=== PATIENT | female | born 1990 | race Caucasian/White ===

== ENCOUNTER 2024-09-14 10:54 | Emergency (ER) | payer OTHER, SELFPAY ==
--- NOTE | 2024-09-14 10:56 | ED_ITS ---
HPI - Back Pain/Injury General Chief Complaint: Back Pain/Injury Stated Complaint: Back pain Time Seen by Provider: 09/14/24 10:56 Source: patient Mode of arrival: ambulatory Limitations: no limitations History of Present Illness HPI Narrative: Patient is a 33-year-old female who presents with back pain for 4 days. Patient states she was caring a lot of heavy boxes and thinks she pulled a muscle. Patient also reports sharp shooting spasms. Denies any numbness, tingling or weakness to legs. Denies any loss of bowel or bladder. has taken ibuprofen with no relief. Has also used massage gun. Related Data Home Medications Medication Instructions Recorded Confirmed Last Taken Type citalopram 20 mg tablet mg 09/14/24 Unknown History levothyroxine 50 mcg tablet mcg 09/14/24 Unknown History tamoxifen 20 mg tablet mg 09/14/24 Unknown History Allergies Allergy/AdvReac Type Severity Reaction Status Date / Time No Known Allergies Allergy Verified 09/14/24 11:10 Review of Systems Review of Systems: All systems reviewed & are unremarkable except as noted in HPI and below Constitutional: Constitutional: Denies body ache(s), Denies chills, Denies fatigue, Denies fever(s), Denies headache(s), Denies malaise and Denies weakness Eyes: Eyes: Denies blurry vision, Denies irritation and Denies loss of vision ENT: Denies otalgia, Denies headache(s), Denies nasal discharge, Denies sinus pain and Denies sore throat Cardiovascular: Cardiovascular: Denies chest pain, Denies irregular heart rhythm and Denies dyspnea Respiratory: Respiratory: Denies dyspnea Gastrointestinal: Gastrointestinal: Denies abdominal pain, Denies melena, Denies hematochezia, Denies diarrhea, Denies nausea and Denies vomiting Musculoskeletal: Musculoskeletal: Reports back pain, Denies myalgias and Denies arthralgias Integumentary/Breasts: Skin/Breast: Denies pruritus and Denies rash Neurologic: Denies headache(s), Denies loss of vision and Denies weakness Psychiatric: Psychiatric: Reports no additional psychiatric complaints Endocrine: Endocrine: Denies fatigue PMFSH Comments At time of signature, agree with nursing past medical, surgical, social and family history. There is no relevant family history pertinent to the presenting complaint. Exam Const: General: cooperative, healthy appearing, comfortable, no acute distress and well nourished Nutritional Appearance: well nourished Orientation/consciousness: patient oriented x3 Limitations: no limitations HENMT: Head: normal to inspection, normocephalic and atraumatic Ears: hearing grossly normal bilaterally and external ears normal Face/Nose/Sinus: Normal external nose present, normal facial exam and face symmetric Face and sinus: normal facial exam and face symmetric Mouth: Yes lip normal Eyes: General: appearance normal, both eyes and all related structures Alignment and Position: alignment normal and position normal Periorbital: periorbital findings normal Eyelids: eyelids normal Pupils: Equal, round and reactive pupils present EOM: EOMs intact bilaterally Neck: Neck: normal visual inspection, full ROM and supple Chest: Chest palpation & inspection: normal inspection of the chest Resp: Effort & Inspection: normal respiratory effort and able to speak in complete sentences Auscultation: clear to auscultation bilaterally Cardio: Rate: regular rate Rhythm: regular rhythm Heart sounds: S1 normal heart sound present and S2 normal heart sound present GI: Inspection: normal to inspection Back/Spine/Pelvis: Back: no CVA tenderness Thoracic/Lumbar Spine: pain with thoraco-lumbar ROM, paraspinal muscle tenderness bilaterally in the upper lumbar and in the mid lumbar, No thoracic spinal tenderness, No lumbar spinal tenderness and other (mild bruising noted to paraspinal area noted from massage gun use) Skin: General skin exam: normal color and no rashes or lesions noted Neuro: General: patient oriented x3 and moves all extremities Cranial nerves: Yes Equal, round and reactive pupils present Speech: normal speech Gait exam (Neuro): Normal gait present Extrem: General: normal to inspection, full ROM and no edema Psych: Appearance: grossly normal and well kempt Mental Status: mental status grossly normal Speech and movement: Normal speech and movement present Affect: normal affect Attitude: cooperative Thought process: Normal thought process present Course Course Emergency Course: Patient is aware of diagnosis, understands and agrees to treatment plan. Anticipatory guidance given. Patient agrees to follow-up as directed and is aware of reasons to seek care at the emergency department. Portions of this record may have been created with voice recognition software Level of Care: Express Care Visit Vital Signs Vital signs: Reviewed MDM - Back Pain/Injury MDM Narrative Medical decision making narrative: Patient appears uncomfortable but is stable. Given IM Toradol. Patient reassessed after 20 minutes. Patient reports no relief. Discussed taking mus ashley relaxer when she gets home. Educated patient on the next step of the emergency department if back pain persists or there is no improvement with medications given. Pt well hydrated appearing, in no respiratory distress, hemodynamically stable. Recommend supportive care. The patient is stable at time of discharge the clinical impression was discussed and the patient was given the opportunity to ask questions, which were addressed as completely as possible given the information available at present. Anticipatory guidance and return to care precautions were discussed and the importance of primary care follow-up was stressed and encouraged. The patient voiced understanding of the plan, indications to return, and the need for follow-up. Exam findings show no acute concerns or changes Patient is appropriate for outpatient treatment and follow-up. Differential Diagnosis Differential diagnosis: Likely lumbar radiculopathy, sciatica and strain of lumbar region Medical Records Attestation: I reviewed the patient's medical records. Discharge Plan Discharge Clinical Impression: Strain of lumbar region Qualifiers: Encounter type: initial encounter Qualified Code(s): S39.012A - Strain of muscle, fascia and tendon of lower back, initial encounter Patient Disposition: Home Condition: Stable Instructions: Low Back Strain (ED), Lower Back Exercises (ED) Additional Instructions: Take steroids in the morning with food for the next 5 days, take muscle relaxers every 8 hours as needed for muscle spasm. do not drive or make any important decisions while on this medication for it can make you drowsy Exercise:Combine aerobic exercise, like walking or swimming, with specific exercises to keep the muscles in your back and abdomen strong and flexible.bed rest is not recommended. Proper Lifting:Be sure to lift heavy items with your legs, not your back. Do not bend over to pick something up. Keep your back straight and bend at your knees. Weight:Maintain a healthy weight. Being overweight puts added stress on your lower back. Avoid Smoking:Both the smoke and the nicotine cause your spine to age faster than normal. Proper Posture:Good posture is important for avoiding future problems. A therapist can teach you how to safely stand, sit, and lift. Use warm moist heat or ice to help with pain. Follow up with Primary provider in 2-3 days, This may become a chronic condition and they will be the one to help manage your pain and order additional testing. Follow-up with your doctor for further care and evaluation or seek ER if you develop problems with bladder/bowel function, weakness or loss of feeling in one or both of your legs. Your blood pressure was elevated above 120/80 today at Urgent Care. This puts you above the threshold for follow up visit with a primary care provider. High blood pressure does not usually cause any symptoms, however it may lead to kidney failure, stroke, heart disease just to name a few if untreated . Many people are anxious when seeing a provider or nurse. As a result, you are not diagnosed with hypertension at this time unless your blood pressure is persis tently high at two office visits at least one week apart. Some things that can help lower blood pressure are lifestyle modifications, such as light exercise, decreased salt in diet, and weight loss. It is important to follow up with a PCP about this within 1 week. If you are having a hard time finding a physician please call our [facility] liaison at [phone]. Patient Language: Divehi Prescriptions: New prednisone 20 mg tablet 40 mg PO DAILY 5 Days Qty: 10 0RF baclofen 10 mg tablet 10 mg PO TID 5 Days Qty: 15 0RF lidocaine 5 % adhesive patch,medicated 1 patch topical DAILY Qty: 15 0RF Rx Instructions: leave on most painful area for up to 12 hrs No Action citalopram 20 mg tablet levothyroxine 50 mcg tablet tamoxifen 20 mg tablet Follow-up/Referrals: José Miguel Rubin MD [Physician] - 3 Days (Establish care) Stand Alone Forms: Work/School Release IP
[2024-09-14 11:09] VITALS: BP 141/90; PULSE 95; RESP 18; TEMP 36.7; O2SAT 100
[2024-09-14] MEDS: KETOROLAC 30 MG/ML VIAL (*BKC) IM (11:20)
--- OUTSIDE RECORDS SUMMARY | 2024-09-14 11:30 | XMS_ITS | Clinical Summary ---
Author Organization [facility] Address [facility] [place] [address] Care Team Providers Care Marine Steamfitter Name Role Phone Guerita Sorensen MD Unavailable Laurent Quigley MD Unavailable [phone] Lydia Harman MD Primary Care Provider Source Comments [facility],non-owned Affiliates and Associated Physician Practices is amultiple site organization consisting of ambulatory clinics and hospital sitesin [place], [place], [place] and [place]. This disclosure is being madepursuant to the Care Everywhere program and may not contain all information available regarding this patient. Last updated 18.[facility] Allergies No known active allergies Medications * Be aware that medications may not be up to date on this document. Alwaysverify current medications with the patient. 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 High risk screening recommendations: Decided to start annual screening mammography age 35 and to add breast MRI age 40 if lifetime risk still 20 % or greater at age 40 1) yearly mammograms, and 2) yearly breast MRI with contrast. Consider risk reducing tamoxifen (pre- or postmenopausal) or raloxifene (Evista) (postmenopausal) for 5 years. Has Mirena IUD. Tamoxifen, 20 mg, started 01/12/2021. Tolerating without problem 07/14/2021. Her personal risk for having a BRCA mutation is less than 2 %. Maternal grandmother with breast cancer is . Patient considering genetic testing in herself but did need to address life insurance. Also has [employer], so would want to meet with genetics counselor. Resolved Problems Problem Noted Date Diagnosed Date Resolved Date Lump in upper outer quadrant of right breast 4 03/19/2024 Overview (03/19/2024): Right upper outer, noted by gynecology nurse practitioner 03/10/2024. 03/19/2024 Jason. I could not appreciate mass and patient could not appreciate mass. Bilateral diagnostic mammogram, right ultrasound: Normal, BI-RADS 1. Family history of breast cancer 01/18/2021 09/04/2021 Overview (09/04/2021): Lifetime risk for developing breast cancer is predicted to be: calculated 01/12/2021 n/a % with the Madelin model, (0 biopsies) (not valid in women under age 35) 23 % with the Tyrer-Cuzick model, (version 8, unknown density) 9 % with the Mahin model, and 13 % with the BRCAPRO model. High risk screening recommendations: Due to start screening either at age 35, or age 40. Plan repeat assessment age 35. 1) yearly mammograms, and 2) yearly breast MRI with contrast. Consider risk reducing tamoxifen (pre- or postmenopausal) or raloxifene (Evista) (postmenopausal) for 5 years. Has Mirena IUD. Tamoxifen, 20 mg, started 01/12/2021. Her personal risk for having a BRCA mutation is less than 2 %. Maternal grandmother with breast cancer is . Patient considering genetic testing in herself but did need to address life insurance. Also has [employer], so would want to meet with genetics counselor. Screening for condition 06/30/202012/2021 Overview (06/30/2020): Adult Abstraction Problem List Screening Dexa Scan (Bone Density): Result: Pap Smear: 09/24/2019 negative 09/25/2017 negative Mammogram: Result: CF Test: Result: Encounter for screening 06/30/202012/2021 Overview (09/04/2021): Adult Abstraction Problem List Screening Dexa Scan (Bone Density): Result: Pap Smear: 09/24/2019 negative 09/25/2017 negative Mammogram: Result: CF Test: Result: Gestational hypertension 05/24/2020 38 weeks gestation of 05/24/2020 10/31/2020 Positive GBS test 05/13/2020 05/25/2020 Supervision of other normal , antepartum 10/12/2019 05/25/2020 Hypothyroidism affecting 10/06/2019 11/24/2020 Migraine headache 07/30/2016 11/24/2020 Fibroadenoma of breast 07/30/201609/04 Overview (09/04/2021): Overview: 2015 2016 Migraine headache 07/30/2016 03/11/2024 Immunizations Immunization Administration Dates Next Due Jesu Yin primary monoval ent 12+ yr 0.3mL Purple cap 08/02/2020,07/07/2020 DT (AGE 0-7) 11/15/2003 DTaP VACCINE IM (6wk-6yrs) 08/28/1994,,04/01/1990,1989,1989 FLU VACCINE QUAD IIV4 SPLIT 0.25 ML IM 02/09/2019 FLU VACCINE TRI IIV3 SPLIT I M (FLUVIRIN) 02/12/2021 HEP B VACCINE, PED/ADOL 02/01/1993,08/26/1992, HIB-PRP-OMP 3 DOSE 09/18/1990,07/10/1990, 990 INFLUENZA VACCINE 01/19/2024 INFLUENZA VACCINE, QUADR. (F LUZONE; FLULAVAL; FLUARIX; AFLURIA QUADRIVALENT; 6MO+), 0.5 ML (IIV4) 02/24/2023,02/18/2022,02/02/2020,2018 MMR 08/28/1994,12/22/1990 POLIO IPV 08/28/1994, 1,01/21/1990,1989 TDAP (7yrs+) 03/28/2020,05/02/2015 VARICELLA 02/12/2021,07/07/2001 Family History Medical History Relation Name Comments Hypertension Father Cancer - Skin, Non Melanoma Maternal Grandfather basal cell, living age 84 Cancer - Breast Maternal Grandmother age 59 Diabetes - Type 2 Mother Hypertension Mother Leukemia Paternal Grandfather ag e 73 Relation Name Status Comments Brother Baiorn Alive Father Alive Maternal Grandfather Alive Maternal Grandmother Mother Alive Paternal Grandfather Paternal Grandmother Alive Sister Elena Social History Tobacco Use Types Packs/Day Years Used Date Smoking Tobacco: Never Smokeless Tobacco: Never Tobacco Cessation:Counseling Given: Not Answered Alcohol Use Standard Drinks/Week Comments Yes 2 (1 standard drink = 0.6 oz pur e alcohol) 2 x week AUDIT-C Answer Date Recorded Q1: How often do you have a drink containing alc ohol? 2-4 times a month 09/05/2021 Q2: How many drinks containi ng alcohol do you have on a typical day when you are drinking? 1 or 2 09/05/2021 Q3: How often do you have si x or more drinks on one occasion? 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 Not on file Not on file Not on emily e Last Filed Vital Signs Vital Sign Reading Time Taken Comments Blood Pressure 129/83 03/11/2024 8:15 AM MACHINE [employer] HELPER Pulse 98 03/11/2024 8:15 AM MACHINE [employer] HELPER Temperature 36.7 C (98.1 F) 03/11/2024 8:15 AM MACHINE [employer] HELPER Respiratory Rate 18 08/17/2022 2:35 PM CDT Oxygen Saturation 99% 03/11/2024 8:15 AM MACHINE [employer] HELPER Inhaled Oxygen Concentration - - Weight 83.9 kg (185 lb) 03/19/2024 8:53 AM MACHINE [employer] HELPER Height 167.6 cm (5' 6 ) 03/19/2024 8:27 AM MACHINE [employer] HELPER Body Mass Index 29.86 03/19/2024 8:27 AM MACHINE [employer] HELPER Plan of Treatment Upcoming Encounters Date Type Department Care Team (Late st Contact Info) Description 04/16/2025 9:00 AM MACHINE [employer] HELPER Office Visit [facility] Health Breast Care - Surgery [address] [place] [id number] Sis Gomez MD [address] [place] [phone] Health Maintenance Due Date Last Done Comments DEPRESSION SCREENING 04/29/2024 08/01/2023, 08/17/2022, 09/04/2021 COVID-19 VACCINE ( season) 2025 08/02/2020, 07/07/2020 Postponed from 12/29/2023 (Patient Directed) PAP with HPV 11/03/2026 11/03/2021, 09/24/2019 DTAP/TDAP/TD VACCINES (9 - Td or Tdap) 03/28/2030 03/28/2020, 05/02/2015, 11/15/2003, Additional history exists ZOSTER VACCINE (1 of 2) 09/18/2039 HIB VACCINE Completed 09/18/1990, 06/27, 04/01/1990 HEPATITIS B VACCINE Completed 02/01/1993, 08/26/1992, 07/27/1992 HEPATITIS C SCREENING Completed 10/12/2019 HIV SCREENING Completed 03/11/2020, 10/12/2019 INFLUENZA VACCINE Completed 01/19/2024, , 02/18/2022, Additional history exists HPV VACCINE Aged Out No longer eligi ble based on patient's age to complete this topic MENINGOCOCCAL (Group B) VACCINE SHARED DECISION-MAKING Aged Out No longer eligible based on patient's age to complete this topic MENINGOCOCCAL GROUPS A/C/Y/W VACCINE Aged Out No longer eligible based on patient's age to complete this topic PNEUMOCOCCAL VACCINE Aged Out No long er eligible based on patient's age to complete this topic Procedures Procedure Name Priority Date/Time Associated Diagnosis Comments PAP IG LB+HPV APTIMA Routine 11/03/2021 1:59 PM CDT Well woman exam HIV-1 HIV-2 ANTIBODY + HIV P24 AG PANEL Routine 03/11/2020 12:08 PM MACHINE [employer] HELPER Encounter for supervision of normal first in second trimester 26 weeks gestation of HEPATITIS C ANTIBODY Routine 10/12/2019 3:34 PM CDT with uncertain viability, single or unspecified fetus from Last 3 Months or Most Recently Relevant to Health Maintenance Results * PAP IG LB+HPV APTIMA (11/03/2021 1:59 PM CDT) Diagnosis [facility] INSURANCE BILL Comment:NEGATIVE FOR INTRAEP ITHELIAL LESION OR MALIGNANCY. Specimen Adequacy [facility] INSURANCE BILL Comment: Satisfactory for evaluation. Endocervical and/or squamous metaplastic cells (endocervical component) are present. Clinician Provided ICD10 [facility] INSURANCE BILL Comment: Z01.419 N83.209 Performed by [facility] INSURANCE BILL Comment:Dat Alexandre totswapnilologist (ASCP) Comment . [facility] INSURANCE BILL Note [facility] INSURANCE BILL Comment: The Pap smear is a screening test designed to aid in the detection of premalignant and malignant conditions of the uterine cervix. It is not a diagnostic procedure and should not be used as the sole means of detecting cervical cancer. Both false-positive and false-negative reports do occur. . [facility] CPT Code Automation [facility] INSURANCE BILL Comment: This liquid based ThinPrep(R) pap test was screened with the use of an image guided system. Human papillomavirus Aptima Negative Negative [facility] INSURANCE BILL Comment: This nucleic acid amplification test detects fourteen high-risk HPV types (16,18,31,33,35,39,45,51,52,56,58,59,66,68) without differentiation. Pathology/Cytolog y ENTIRE ENDOCERVIX / Unknown 11/03/2021 1:59 PM CDT 11/07/2021 Narrative [facility] INSURANCE BILL - 11/08/2021 3:08 PM CDT No. of containers..01 ThinPrep Vial Resulting Agency Comment Lab Testing performed at: [id number] [id number] Guerita Sorensen MD LAB - PATHOLOGY/CYTOLOGY OR DERABLES Final Result [facility] INSURANCE BILL [address] [place] [address] * HIV-1 HIV-2 ANTIBODY + HIV P24 AG PANEL (03/11/2020 12:08 PM MACHINE [employer] HELPER) HIV Screen 4th Generation w Reflex Non Reactive Non Reactive [facility] INSURANCE BILL Blood BLOOD SPECIMEN / Unknown 03/11/2020 12:08 PM MACHINE [employer] HELPER 03/11/2020 Narrative Resulting Agency Comment Lab Testing performed at: [facility] [address] [facility] [id number] Guerita Sorensen MD LAB - CHEMISTRY ORDERABLES Final Result [facility] INSURANCE BILL [address] [place] [address] * HEPATITIS C ANTIBODY (10/12/2019 3:34 PM CDT) Hepatitis C Antibody <0.1 0.0 - 0.9 s/co ratio [facility] INSURANCE BILL Comment: Negative: < 0.8 Indeterminate: 0.8 - 0.9 Positive: > 0.9 . The CDC recommends that a positive HCV antibody result be followed up with a HCV Nucleic Acid Amplification test (158790). Blood BLOOD SPECIMEN / Unknown 10/12/2019 3:34 PM CDT 10/12/2019 Narrative Resulting Agency Comment Lab Testing performed at: [address] [id number] Guerita Sorensen MD LAB - CHEMISTRY ORDERABLES Final Result Performing Organization Address City/[facility]/ZIP Co de Phone Number [facility] INSURANCE BILL [address] [place] [phone] from Last 3 Months or Most Recently Relevant to Health Maintenance Insurance [employer] Advance Directives * Full Code (Latest Code Status on File) Date Activated Date Inactivated Comments 05/24/2020 12:02 PM 05/27/2020 3:57 PM Care Teams Marine Steamfitter Relationship Specialty Start Date End Date Lydia Harman MD [address] [place] [address] PCP - General Internal Medicine 03/11/24 Guerita Sorensen MD [address] [place] [phone] [employer] Goods Fabricator Obstetrics and Gynecology 10/12/20 Laurent Quigley MD [address] [place] [address] [address] [place] [address] Distribution Technician Cardiology 10/12/20
--- OUTSIDE RECORDS SUMMARY | 2024-09-14 11:30 | XMS_ITS | Encounter Summary ---
Author Organization [facility] Address [facility] [place] [address] Care Team Providers Care Director Of Culture Name Role Phone Jeannine Guevara DO Primary Care Provider [phone] Jeannine Guevara DO Unavailable [phone] Guerita Sorensen MD Unavailable [phone] Laurent Quigley MD Unavailable [phone] Melissa Patterson DO Unavailable [phone] Jeannine Guevara DO Unavailable [phone] Jeannine Guevara DO Unavailable [phone] Lydia Harman MD Primary Care Provider Jeannine Guevara DO Primary Care Provider [phone] Lydia Harman MD Primary Care Provider Reason for Visit * Reason Onset Date Comments MEDICATION REFILL 10/03/2020 Encounter Details Date Type Department Care Team (Late st Contact Info) Description 10/03/2020 Refill [facility] - [employer] APPLIC[employer] [address] [address] Guerita Sorensen MD [facility] [place] [phone] MEDICATION REFILL Social History Tobacco Use Types Packs/Day Years Used Date Smoking Tobacco: Never Smokeless Tobacco: Never Alcohol Use Standard Drinks/Week Comments Not Currently 3 (1 standard drink = 0.6 oz pur e alcohol) Socially Comments No Sex and Gender Information Value Date Recorded Sex Assigned at Female 04/15/2020 9:06 AM GATE TECHNICIAN Legal Sex Female 8:10 AM CDT Gender Identity Female 08/14/2018 3:26 PM CDT Sexual Orientation Straight 05/13/2020 1: 44 PM GATE TECHNICIAN documented as of this encounter Functional Status * Is person deaf or have serious hearing difficulty? Answer Date of Assessment Author No 05/24/2020 1:34 PM GATE TECHNICIAN Kaitlin Gillespie RN * Is person blind or have serious difficulty seeing? Answer Date of Assessment Author No 05/24/2020 1:34 PM Kaitlin Chappell RN * Does person have serious difficulty walking/climbing stairs? Answer Date of Assessment Author No 05/24/2020 1:34 PM Kaitlin hCappell RN * Does person have difficulty dressing/bathing? Answer Date of Assessment Author No 05/24/2020 1:34 PM Kaitlin Chappell RN * Does person have difficulty doing errands alone? Answer Date of Assessment Author No 05/24/2020 1:34 PM Kaitlin Chappell RN documented as of this encounter Mental Status * Does person have difficulty concentrating/remembering/making decisions? Answer Entry Date Author No 05/24/2020 1:34 PM Kaitlin Chappell RN documented in this encounter Miscellaneous Notes * Telephone Encounter - Guerita Sorensen MD - 10/04/2020 9:55 AM CDT Signed. * Telephone Encounter - Deirdre Bocanegra RN - 10/04/2020 8:33 AM CDT MARILYN: 08/03/20 LRF: 07/01/20 Requested Prescriptions Pending Prescriptions Disp Refills â€¢ levothyroxine (SYNTHROID) 50 MCG tablet 90 tablet 0 Sig: Take 1 (one) tablet by mouth once daily documented in this encounter Plan of Treatment Upcoming Encounters Date Type Department Care Team (Late st Contact Info) Description 04/16/2025 9:00 AM GATE TECHNICIAN Office Visit [facility] - Surgery [address] [place] [phone] Sis Gomez MD [address] [place] [phone] documented as of this encounter Visit Diagnoses Not on filedocumented in this encounter Additional Health Concerns Infection Onset Date Last Indicated Resolved Time COVID-19 Under Investigation 12/27/2020 12/27/2020 12/27/2020 11:13 AM CDT documented as of this encounter Care Teams Director Of Culture Relationship Specialty Start Date End Date Jeannine Guevara DO [address] [facility] [place] [phone] PCP - General Family Medicine 08/29/17 11/27/23 Jeannine Guevara DO [address] [facility] [place] [phone] PCP - Attributed-[employer] 06/27/20 2 Melissa Patterson DO [address] [place] [address] [place] [phone] PCP - Attributed-[employer] 07/28/21 Jeannine Guevara DO [address] [facility] [place] [phone] PCP - Attributed-[employer] 08/27/22 01/14/23 Jeannine Guevara DO [address] [facility] [place] [phone] PCP - Attributed-[employer] 11/27/22 Lydia Harman MD [address] [place] [address] PCP - General Internal Medicine 11/28/23 12/16/23 Jeannine Guevara DO [address] [facility] [place] [phone] PCP - General Family Medicine 12/17/23 03/10/24 Lydia Harman MD [address] [place] [address] PCP - General Internal Medicine 03/11/24 Guerita Sorensen MD [address] [place] [phone] [facility] 10/12/20 Laurent Quigley MD [address] [place] [address] [address] [place] [address] Cosmetic Consultant Cardiology 10/12/20 documented as of this encounter
--- OUTSIDE RECORDS SUMMARY | 2024-09-14 11:30 | XMS_ITS | Encounter Summary ---
Author Organization [facility] [place] [address] [place] [address] Care Team Providers Care Production Underwriter Name Role Phone Unavailable Primary Care Provider Unavailabl e Prior Encounters Date Type Department Care Team Description 08/01/2022 Travel 08/01/2022 8:00 AM CDT Office Visit Dentists [address] [place] [address] Masood Milena, [facility] 08/01/2022 8:00 AM CDT Office Visit Dentists [address] [place] [address] Nick De Los Santos, DMD 01/27/2022 Travel 01/27/2022 8:00 AM CDT Office Visit Dentists [address] [place] [address] Nick De Los Santos, DMD 07/25/2021 Travel 07/25/2021 4:30 PM CDT Office Visit Dentists [address] [place] [address] Nick De Los Santos, DMD 07/14/2021 Travel 07/14/2021 8:00 AM CDT Office Visit Dentists [address] [place] [address] Nick De Los Santos, DMD 01/18/2021 Travel 01/18/2021 4:30 PM CDT Office Visit Dentists [address] [place] [address] Nick De Los Santos, DMD Last Filed Vital Signs Vital Sign Reading Time Taken Comments Blood Pressure 116/72 08/01/2022 8:20 AM CDT Pulse 83 08/01/2022 8:20 AM CDT Temperature - - Respiratory Rate - - Oxygen Saturation - - Inhaled Oxygen Concentration - - Weight - - Height - - Body Mass Index - - Plan of Treatment Not on file Procedures Procedure Name Priority Date/Time Associated Diagnosis Comments ORAL HYGIENE INSTRUCTIONS Routine 2022 8:00 AM CDT TOPICAL APPLICATION OF FLUORIDE VARNISH Routine 08/01/2022 8:00 AM CDT PROPHYLAXIS - ADULT Routine 08/01/2022 8 :00 AM CDT INTRAORAL PHOTO Routine 08/01/2022 8:00 AM CDT INTRAORAL PHOTO Routine 08/01/2022 8:00 AM CDT INTRAORAL PHOTO Routine 08/01/2022 8:00 AM CDT INTRAORAL PHOTO Routine 08/01/2022 8:00 AM CDT BITEWINGS - FOUR RADIOGRAPHIC IMAGES Routine 08/01/2022 8:00 AM CDT ADDITIONAL X-RAY Routine 08/01/2022 8:00 AM CDT ADDITIONAL X-RAY Routine 08/01/2022 8:00 AM CDT ADDITIONAL X-RAY Routine 08/01/2022 8:00 AM CDT ADDITIONAL X-RAY Routine 08/01/2022 8:00 AM CDT ADDITIONAL X-RAY Routine 08/01/2022 8:00 AM CDT SINGLE X-RAY Routine 08/01/2022 8:00 AM CDT PERIODIC ORAL EVALUATION - ESTABLISHED PATIENT Routine 08/01/2022 8:00 AM CDT PROPHYLAXIS - ADULT Routine 01/27/2022 8 :00 AM CDT TOPICAL APPLICATION OF FLUORIDE VARNISH Routine 01/27/2022 8:00 AM CDT ORAL HYGIENE INSTRUCTIONS Routine 2021 8:00 AM CDT INTRAORAL PHOTO Routine 01/27/2022 8:00 AM CDT INTRAORAL PHOTO Routine 01/27/2022 8:00 AM CDT INTRAORAL PHOTO Routine 01/27/2022 8:00 AM CDT INTRAORAL PHOTO Routine 01/27/2022 8:00 AM CDT BITEWINGS - FOUR RADIOGRAPHIC IMAGES Routine 01/27/2022 8:00 AM CDT ADDITIONAL X-RAY Routine 01/27/2022 8:00 AM CDT ADDITIONAL X-RAY Routine 01/27/2022 8:00 AM CDT ADDITIONAL X-RAY Routine 01/27/2022 8:00 AM CDT ADDITIONAL X-RAY Routine 01/27/2022 8:00 AM CDT ADDITIONAL X-RAY Routine 01/27/2022 8:00 AM CDT SINGLE X-RAY Routine 01/27/2022 8:00 AM CDT PERIODIC ORAL EVALUATION - ESTABLISHED PATIENT Routine 01/27/2022 8:00 AM CDT OCCLUSAL GUARD DELIVERY Routine 07/26/19 4:30 PM CDT OCCLUSAL GUARD HARD APPLIANCE, FULL ARCH Routine 07/14/2021 8:00 AM CDT ORAL HYGIENE INSTRUCTIONS Routine 2021 8:00 AM CDT TOPICAL APPLICATION OF FLUORIDE VARNISH Routine 07/14/2021 8:00 AM CDT PROPHYLAXIS - ADULT Routine 07/14/2021 8 :00 AM CDT INTRAORAL PHOTO Routine 07/14/2021 8:00 AM CDT INTRAORAL PHOTO Routine 07/14/2021 8:00 AM CDT INTRAORAL PHOTO Routine 07/14/2021 8:00 AM CDT INTRAORAL PHOTO Routine 07/14/2021 8:00 AM CDT BITEWINGS - FOUR RADIOGRAPHIC IMAGES Routine 07/14/2021 8:00 AM CDT PERIODIC ORAL EVALUATION - ESTABLISHED PATIENT Routine 07/14/2021 8:00 AM CDT ORAL HYGIENE INSTRUCTIONS Routine 2020 4:30 PM CDT TOPICAL APPLICATION OF FLUORIDE VARNISH Routine 01/18/2021 4:30 PM CDT PROPHYLAXIS - ADULT Routine 01/18/2021 4 :30 PM CDT INTRAORAL PHOTO Routine 01/18/2021 4:30 PM CDT INTRAORAL PHOTO Routine 01/18/2021 4:30 PM CDT INTRAORAL PHOTO Routine 01/18/2021 4:30 PM CDT INTRAORAL PHOTO Routine 01/18/2021 4:30 PM CDT PANORAMIC RADIOGRAPHIC IMAGE Routine 01/18/2021 4:30 PM CDT INTRAORAL - COMPREHENSIVE SERIES OF RADIOGRAPHIC IMAGES Routine 01/18/2021 4:30 PM CDT COMPREHENSIVE ORAL EVALUATION - NEW OR ESTABLISHED PATIENT Routine 01/18/2021 4:30 PM CDT 18 O COMPOSITE FILLING Routine 12:00 AM CDT 32 EXTRACTION - A Routine 01/18/2021 12: 00 AM CDT 17 EXTRACTION - A Routine 01/18/2021 12: 00 AM CDT 16 EXTRACTION - A Routine 01/18/2021 12: 00 AM CDT 1 EXTRACTION - A Routine 01/18/2021 12:0 0 AM CDT Visit Diagnoses Not on file Insurance [facility]
--- OUTSIDE RECORDS SUMMARY | 2024-09-14 11:30 | XMS_ITS | Clinical Summary ---
Author Organization [facility] Address [address] [place] [address] Care Team Providers Care Orientor Name Role Phone Unavailable Primary Care Provider Unavailabl e Immunizations Immunization Administration Dates Next Due INFLUENZA VACCINE QUADRIVALENT 6 MOS UP PF IM ,02/18/2022 Social History Tobacco Use Types Packs/Day Years Used Date Smoking Tobacco: Never Assessed Comments Unknown Sex and Gender Information Value Date Recorded Sex Assigned at Not on file Legal Sex Female 11:07 AM CDT Gender Identity Not on file Sexual Orientation Not on file Plan of Treatment Health Maintenance Due Date Last Done Comments DTAP/TDAP/TD VACCINES (1 - Tdap) 2008 HEPATITIS B VACCINES (1 of 3 - 19+ 3-dose series) 2008 HPV/Cotest (21-29) 2010 CERVICAL CANCER SCREENING 09/18/2019 HPV/Cotest (30-65) 09/18/2019 PAP SMEAR 09/18/2019 INFLUENZA VACCINE (#1) 2023 3, 02/18/2022 HPV VACCINES Aged Out No longer eligi ble based on patient's age to complete this topic Insurance [employer]
--- OUTSIDE RECORDS SUMMARY | 2024-09-14 11:30 | XMS_ITS | Clinical Summary ---
Author Organization [facility] Address [address] [facility] [place] [address] Care Team Providers Care Instructional Technology Coordinator Name Role Phone Unavailable Primary Care Provider Unavailabl e Allergies No known active allergies Medications hydrOXYzine HCL (ATARAX) 10 mg tablet Take 10 mg by mouth. 1 Active levonorgestreL (Mirena) 20 mcg/24 hours (6 yrs) 52 mg IUD 1 Device by intrauterine route. Active levothyroxine (SYNTHROID, LEVOTHROID) 50 mcg tablet Take 1 tablet by mouth 1 (one) time each day. 1 Active multivitamin-Ca -iron-minerals tablet Take by mouth. Activ e tamoxifen (NOLVADEX) 20 mg chemo tablet Take 20 mg by mouth 1 (one) time each day 1 Active amoxicillin-pot clavulanate (AUGMENTIN) 875-125 mg tablet TAKE 1 TABLET BY MOUTH TWICE DAILY WITH THE MORNING AND EVENING MEAL FOR 10 DAYS 2 Active ID NOW COVID-19 Test Kit kit TEST DIRECTED TODAY 2 Active fluticasone propionate (FLONASE) 50 mcg/actuation nasal spray Administer 2 sprays into affected nostril(s) 1 (one) time each day. 2 Active fluticasone propionate (FLONASE) 50 mcg/actuation nasal spray SHAKE LIQUID AND USE 2 SPRAYS IN EACH NOSTRIL EVERY DAY 2 Active hydrOXYzine HCL (ATARAX) 10 mg tablet Take 10 mg by mouth. 1 Active citalopram (CeleXA) 20 mg tablet 2 Active citalopram (CeleXA) 20 mg tablet Take 20 mg by mouth 1 (one) time each day. 2 Active traZODone (DESYREL) 50 mg tablet 2 Active levothyroxine (SYNTHROID, LEVOTHROID) 50 mcg tablet Take 50 mcg by mouth 1 (one) time each day. 3 Active Active Problems Problem Noted Date Diagnosed Date Family history of breast cancer 01/27/2022 Overview (01/27/2022): Lifetime risk for developing breast cancer is [...] would want to meet with genetics counselor. Anxiety 12/06/2021 Family history of breast cancer 01/18/2021 Overview (01/18/2021): Lifetime risk for developing breast cancer is [...] meet with genetics counselor. Screening for condition 06/30/2020 Overview (01/18/2021): Adult Abstraction Problem List Screening Dexa Scan (Bone Density): Result: Pap Smear: 09/24/2019 negative 09/25/2017 negative Mammogram: Result: CF Test: Result: Fibroadenoma of breast 07/30/2016 Overview (01/18/2021): Overview: 2015 2016 Migraine headache 07/30/2016 Neck pain, bilateral posterior 07/30/2016 Immunizations Immunization Administration Dates Next Due COVID-19, mRNA, LNP-S, PF, 3 0 mcg/0.3 mL dose 08/02/2020,07/07/2020 DT, pediatric 11/15/2003 DTaP 08/28/1994, 1,04/01/1990,1989,1989 Hep B, adolescent or pediatric 02/01/1993,1992,07/27/1992 Hib (PRP-OMP) 09/18/1990,07/10/1990,04/01/1990 IPV 08/28/1994, 1,01/21/1990,1989 MMR 08/28/1994,12/22/1990 PPD Test 08/28/1994,11/28/1992,09/18/1990 Tdap 03/28/2020,05/02/2015 Varicella 02/12/2021,07/07/2001 Social History Tobacco Use Types Packs/Day Years Used Date Smoking Tobacco: Never Assessed Comments Unknown Sex and Gender Information Value Date Recorded Sex Assigned at Not on file Legal Sex Female 11:36 AM PDT Gender Identity Not on file Sexual Orientation Not on file Last Filed Vital Signs Vital Sign Reading Time Taken Comments Blood Pressure 116/72 08/01/2022 8:20 AM CDT Pulse 83 08/01/2022 8:20 AM CDT Temperature - - Respiratory Rate - - Oxygen Saturation - - Inhaled Oxygen Concentration - - Weight - - Height - - Body Mass Index - - Plan of Treatment Health Maintenance Due Date Last Done Comments Dental Oral Exam 02/01/2023 08/01/2022, 04/2021, 07/14/2021, Additional history exists Dental Prophylaxis 02/01/2023 08/01/2022, 1 , 07/14/2021, Additional history exists Dental X-Ray: Bitewings 02/01/2023 08/01/2022 Dental X-Ray: Panoramic 01/20/2024 01/18/2021 Dental X-Ray: Full Mouth 08/02/2025 08/01/2022, 12/29 Meningococcal B Vaccine Aged Out No l onger eligible based on patient's age to complete this topic Procedures Procedure Name Priority Date/Time Associated Diagnosis Comments PROPHYLAXIS - ADULT Routine 08/01/2022 8 :00 AM CDT PERIODIC ORAL EVALUATION - ESTABLISHED PATIENT Routine 08/01/2022 8:00 AM CDT PANORAMIC RADIOGRAPHIC IMAGE Routine 01/18/2021 4:30 PM CDT INTRAORAL - COMPREHENSIVE SERIES OF RADIOGRAPHIC IMAGES Routine 01/18/2021 4:30 PM CDT from Last 3 Months or Most Recently Relevant to Health Maintenance Insurance [facility]
== END 2024-09-14 11:48 | disposition home or self-care (01) ==
PROVIDERS: Emergency Provider Nurse Practitioner Family
DX: S39.012A Strain of muscle, fascia and tendon of lower back, initial encounter (principal); X50.0XXA Overexertion from strenuous movement or load, initial encounter; E03.9 Hypothyroidism, unspecified
CPT/HCPCS: 96372; 99203; G0463; J1885